=== PATIENT | male | born 1945 | race Caucasian/White ===

== ENCOUNTER → 2017-03-01 | Outpatient (CLI) | payer BC ==
--- NOTE | 2017-03-01 11:13 | DIAGNOSTIC IMAGING REPORT ---
RIGHT HAND MIN 3 VIEWS CLINICAL HISTORY: Right hand pain. Puncture wound. COMPARISON: None. DISCUSSION: No acute fractures are visualized. There are no radiopaque foreign bodies. No destructive lesions are evident. There are mild degenerative changes. IMPRESSION: 1. No acute fractures 2. No radiopaque foreign bodies identified Electronically signed by: Micheal Pack M.D. 03/01/2017 11:11 AM Dictated Date/Time: 03/01/2017 11:11 AM
== END | disposition home or self-care (01) ==
LOC: C.RDSM 16:47
PROVIDERS: ATTEND Internal Medicine
DX: M79.641 Pain in right hand (principal)